=== PATIENT | female | born 2000 | race Asian ===

== ENCOUNTER 2020-08-27 19:53 | Inpatient (IN) ==
[2020-08-27 20:48] LABS: ABS Eosinophils 0.1 10^3/ul (0-0.6); ABS Monocytes 0.4 10^3/ul (0-0.8); ABS Neutrophils 3.6 10^3/ul (1.5-7.7); Eosinophil % 2.2 %; Hematocrit 36 % (35-47); Hemoglobin 12.5 g/dL (12.0-16.0); Lymphocyte % 32.1 %; Mean Corpuscular HGB Conc 35 g/dL (31-36); Mean Corpuscular Hemoglobin 31 pg (27-31); Mean Corpuscular Volume 91 fL (80-97); Mean Platelet Volume 7.1 fL (7.4-10.4); Platelet Count 397 10^3/uL (150-450); Red Cell Distribution Width 13 % (10-15); White Blood Count 6.1 10^3/uL (3.5-10.8)
[2020-08-27 21:04] LABS: ALT 9 U/L (7-52); AST 16 U/L (13-39); Albumin 4.8 g/dL (3.2-5.2); Albumin/Globulin Ratio 1.7 (1-3); Alkaline Phosphatase 53 U/L (34-104); Anion Gap 9 mmol/L (2-11); BUN/Creatinine Ratio 10.1 (8-20); Blood Urea Nitrogen 7 mg/dL (6-24); CO2 Carbon Dioxide 24 mmol/L (22-32); Calcium 9.5 mg/dL (8.6-10.3); Chloride 103 mmol/L (101-111); EGFR African American 131.2 (>60); EGFR Non-African American 108.5 (>60); Globulin 2.8 g/dL (2-4); Glucose 85 mg/dL (70-100); Potassium 3.6 mmol/L (3.5-5.0); Sodium 136 mmol/L (135-145); Total Protein 7.6 g/dL (6.4-8.9)
[2020-08-27 21:17] LABS: Alcohol, S < 10 mg/dL (<10); Salicylate < 2.50 mg/dL (<30)
[2020-08-27 21:21] LABS: Acetaminophen < 15 mcg/mL
[2020-08-27 21:32] LABS: TSH Ultra Thyroid Stim Horm 1.34 mcIU/mL (0.34-5.60)
[2020-08-28 02:00] LABS: Urine Appearance Cloudy; Urine Bilirubin Negative (Negative); Urine Blood 3+ (Negative); Urine Color Yellow; Urine Glucose Negative (Negative); Urine Ketones Negative (Negative); Urine Nitrite Negative (Negative); Urine Protein Negative (Negative); Urine Specific Gravity 1.006 (1.010-1.030); Urine Urobilinogen Negative (Negative)
[2020-08-28 02:07] LABS: Urine Bacteria Absent (Absent); Urine Red Blood Cell Trace(0-2/hpf) (Absent); Urine Squamous Epithelial Cell Present (Absent); Urine White Blood Cell 2+(11-20/hpf) (Absent)
[2020-08-28 02:17] LABS: Urine Benzodiazepine Screen None Detected (None Detect); Urine Cannabinoids Screen None Detected (None Detect); Urine Opiates Screen None Detected (None Detect)
[2020-08-28] MEDS ORDERED: Al Hydrox/Mg Hydrox/Simet LIQ 30 ML UDC PO PRN (02:35)
[2020-08-28] MEDS: Vitamin THERAPEUTIC TAB PO SCH (09:31)
[2020-08-29 07:28] LABS: HDL Cholesterol 56.4 mg/dL
[2020-08-29] MEDS: Vitamin THERAPEUTIC TAB PO SCH (08:54)
[2020-08-30] MEDS: Vitamin THERAPEUTIC TAB PO SCH (09:17)
[2020-08-31] MEDS: Vitamin THERAPEUTIC TAB PO SCH (08:58)
[2020-09-01] MEDS: Vitamin THERAPEUTIC TAB PO SCH (08:12)
[2020-09-01 08:55] VITALS: BP 128/80
== END 2020-09-01 17:08 | disposition home or self-care (01) | DRG 885 ==
LOC: ED 19:53 → BSU 08-28 00:20
PROVIDERS: ADMIT Psychiatry & Neurology Psychiatry; ATTEND Psychiatry & Neurology Psychiatry